=== PATIENT | female | born 1980 | race Hispanic/Latino ===

== ENCOUNTER 2018-10-15 17:11 | Emergency (ER) | payer OTHER ==
[~2018-10-15] VITALS: Ht 167.6 cm; Wt 81.7 kg
[~2018-10-15 17:11] MED LIST: AMOXICILLIN500 MG PO; BACTRIM DS TAB1 EACH PO; CEPHALEXIN500 MG PO; NAPROSYN500 MG PO; NORCO 5-325 TA1 EACH PO; PENICILLIN V P500 MG PO; PRENATAL-FOLIC1 EACH PO
--- OUTSIDE RECORDS SUMMARY | 2018-10-15 17:14 | XMS ---
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 Wes has no Care Guidelines for this patient. Rudolph VISIT COUNT (12 MO.) 1 [facility] TOTAL 1 NOTE: Visits indicate total known visits. ED/C VISIT TRACKING (12 MO.) 10/15/2018 17:12 [facility] [place] TYPE: Emergency COMPLAINT: - DENTAL PAIN INPATIENT VISIT TRACKING (12 MO.) No inpatient visits to display in this time frame [email or web address]
[2018-10-15] MEDS ORDERED: SUBOXONE 8 MG-1 EAC1 SL (17:24)
[2018-10-15] MEDS ORDERED: PENICILLIN V P500 MG PO (17:49)
[2018-10-15] MEDS ORDERED: IBUPROFEN600 MG PO (17:49)
== END 2018-10-15 18:02 | disposition home or self-care (01) ==
LOC: ED 17:11
DX: K04.7 Periapical abscess without sinus (principal); F17.200 Nicotine dependence, unspecified, uncomplicated; Z79.899 Other long term (current) drug therapy
CPT/HCPCS: 99282; 99406

== ENCOUNTER 2021-01-19 00:38 | Emergency (ER) | payer OTHER ==
[~2021-01-19] VITALS: Ht 167.6 cm; Wt 81.7 kg
[~2021-01-19 00:38] MED LIST changes: +IBUPROFEN600 MG PO; +SUBOXONE 8 MG-1 EAC1 SL
--- OUTSIDE RECORDS SUMMARY | 2021-01-19 00:44 | XMS ---
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 Wes has no Care Guidelines for this patient. Care History Medical/Surgical 10/18/2018 [facility] - PATIENT DOES NOT HAVE A PCP - PLEASE CONTACT [facility] AT [phone] DURING BUSINESS HOURS TO HAVE PATIENT ESTABLISH CARE WITH A PROVIDER. - PATIENT CONTACT NUMBER IS ACTIVE BUT MAILBOX IS FULL. - NO PCP LETTER SENT TO PATIENT. EShira. VISIT COUNT (12 MO.) 1 [facility] TOTAL 1 NOTE: Visits indicate total known visits. ED/C VISIT TRACKING (12 MO.) 01/19/2021 00:[address] [facility] [place] TYPE: Emergency COMPLAINT: - DIFFICULTY BREATHING INPATIENT VISIT TRACKING (12 MO.) No inpatient visits to display in this time frame [id number]
[2021-01-19] MEDS ORDERED: LAMOTRIGINE200 MG PO (01:05)
--- NOTE | 2021-01-20 03:08 | EKG ---
[facility] [address] [place], [place] [address] Signed Sinus tachycardia Otherwise normal ECG No previous ECGs available Confirmed by ROMA SR MD ([id number]) on 01/20/2021 3:08:03 AM Electronically Signed By: ROMA SR MD 01/20/21 0308 PATIENT NAME: ADAN MOODY Electrocardiogram DATE OF : 84 PHYSICIAN: ROMA SR MD REPORT #: [id number] REPORT IS CONFIDENTIAL AND NOT TO BE RELEASED WITHOUT AUTHORIZATION
== END 2021-01-19 02:04 | disposition home or self-care (01) ==
LOC: ED 00:38
DX: F41.9 Anxiety disorder, unspecified (principal); F45.8 Other somatoform disorders; F17.200 Nicotine dependence, unspecified, uncomplicated; Z79.899 Other long term (current) drug therapy
CPT/HCPCS: 80053; 83735; 84484; 85025; 93005; 93010; 99283-25